=== PATIENT | male | born 1980 | race Caucasian/White ===

== ENCOUNTER 2017-05-01 08:42 | Emergency (ER) | payer SELFPAY ==
[~2017-05-01] VITALS: Ht 177.8 cm; Wt 83.9 kg
[2017-05-01] MEDS ORDERED: ROBAXIN-750750 MG PO (09:17)
[2017-05-01] MEDS ORDERED: MOTRIN 600MG.600 MG PO (09:17)
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
[2017-05-01] MEDS ORDERED: AMOXICOT500 MG PO (09:47)
[2017-05-01 09:54] VITALS: BP 122/77
== END 2017-05-01 09:55 | disposition home or self-care (01) ==
LOC: ER 08:42
DX: S13.4XXA Sprain of ligaments of cervical spine, initial encounter (principal); S16.1XXA Strain of muscle, fascia and tendon at neck level, initial encounter; V43.63XA Car passenger injured in collision with pick-up truck in traffic accident, initial encounter; Y92.414 Local residential or business street as the place of occurrence of the external cause; S00.93XA Contusion of unspecified part of head, initial encounter; J32.9 Chronic sinusitis, unspecified